=== PATIENT | female | born 1960 | race Caucasian/White ===

== ENCOUNTER → 2024-02-07 09:54 | Outpatient (REF) | payer BC, SELFPAY | LOC: HWWDC 09:54 | PROVIDERS: ATTENDING PHYSICIAN Nurse Practitioner Family | DX: Z12.31 Encounter for screening mammogram for malignant neoplasm of breast (principal); N83.201 Unspecified ovarian cyst, right side; N83.202 Unspecified ovarian cyst, left side | CPT/HCPCS: 76830; 76856; 77063; 77067 ==